=== PATIENT | male | born 1960 | race Two or more races ===

== ENCOUNTER 2020-10-04 20:25 | Emergency (ER) | payer MEDICAID ==
[~2020-10-04] VITALS: Ht 180.3 cm; Wt 86.0 kg
[2020-10-04] MEDS ORDERED: KETOROLAC 30MG/ML VIAL IM ONE (22:30)
[2020-10-04] MEDS ORDERED: NAPR-420 MT (22:47)
[2020-10-04] MEDS ORDERED: CYCL25PO21 MT (22:47)
[2020-10-04 22:54] VITALS: BP 144/78
[2020-10-04] MEDS ORDERED: CYCL10TA7 MT (23:06)
== END 2020-10-04 23:15 | disposition home or self-care (01) ==
LOC: ER 20:25
DX: M54.40 Lumbago with sciatica, unspecified side (principal); E11.9 Type 2 diabetes mellitus without complications; I10 Essential (primary) hypertension; Z86.59 Personal history of other mental and behavioral disorders; Z98.890 Other specified postprocedural states
CPT/HCPCS: 96372; 99283; J1885